=== PATIENT | female | born 1990 | race Two or more races ===

== ENCOUNTER 2019-08-13 13:22 | Outpatient (CLI) | payer OTHER | END 2019-08-14 10:56 | disposition home or self-care (01) | LOC: OBS/DEL 13:22 | DX: O26.892 Other specified pregnancy related conditions, second trimester (principal); J09.X2 Influenza due to identified novel influenza A virus with other respiratory manifestations ==

== ENCOUNTER → 2019-08-13 | Emergency (ER) | payer OTHER ==
[~2019-08-13] VITALS: Ht 152.4 cm; Wt 74.8 kg
== END | disposition still patient (30) ==
LOC: ER 11:27
DX: O26.892 Other specified pregnancy related conditions, second trimester (principal); J09.X2 Influenza due to identified novel influenza A virus with other respiratory manifestations

== ENCOUNTER 2019-11-02 09:22 | Inpatient (IN) | payer OTHER ==
[~2019-11-02] VITALS: Ht 152.4 cm; Wt 74.4 kg
[2019-11-02] MEDS ORDERED: PRENATAL TABLE1 EAC1 PO (12:03)
== END 2019-11-04 13:51 | disposition home or self-care (01) | DRG 788 ==
LOC: LDR 09:22 → OB/GYN 20:23
PROVIDERS: ADMIT Obstetrics & Gynecology
PROC: 3E033VJ Introduction of Other Hormone into Peripheral Vein, Percutaneous Approach (ICD-10-PCS; 2019-11-02)
PROC: 4A1HXFZ Monitoring of Products of Conception, Cardiac Rhythm, External Approach (ICD-10-PCS; 2019-11-02)
PROC: 10D00Z1 Extraction of Products of Conception, Low, Open Approach (ICD-10-PCS; principal; 2019-11-02 18:00)
DX: O42.02 Full-term premature rupture of membranes, onset of labor within 24 hours of rupture (principal); O65.4 Obstructed labor due to fetopelvic disproportion, unspecified; Z3A.38 38 weeks gestation of pregnancy; Z37.0 Single live birth